=== PATIENT | male | born 1985 | race Two or more races ===

== ENCOUNTER 2018-11-20 13:11 | Emergency (ER) | payer BC, OTHER ==
[~2018-11-20] VITALS: Ht 162.6 cm; Wt 80.7 kg
[2018-11-20 14:05] VITALS: BP 121/73
[2018-11-20] MEDS ORDERED: METHOCARBAMOL 500 MG TAB PO ONE (14:45)
[2018-11-20] MEDS ORDERED: KETOROLAC TROMETH 60MG/2ML VIAL IM ONE (14:45)
== END 2018-11-20 15:48 | disposition home or self-care (01) ==
LOC: ER 13:11 → EDBD 13:11 → ER 15:39
DX: S33.5XXA Sprain of ligaments of lumbar spine, initial encounter (principal); X50.9XXA Other and unspecified overexertion or strenuous movements or postures, initial encounter; Y93.89 Activity, other specified; Y92.89 Other specified places as the place of occurrence of the external cause; Y99.8 Other external cause status
CPT/HCPCS: 72100; 96372; 99283; J1885